=== PATIENT | male | born 1940 | race Caucasian/White ===

== ENCOUNTER 2018-11-06 10:32 | Emergency (ER) | payer MEDICARE ==
[~2018-11-06] VITALS: Ht 180.3 cm; Wt 110.2 kg
[2018-11-06 10:41] VITALS: BP 164/86
== END 2018-11-06 12:44 | disposition home or self-care (01) ==
LOC: ED 12:13
DX: G89.11 Acute pain due to trauma (principal); M25.551 Pain in right hip; M25.561 Pain in right knee; M25.462 Effusion, left knee; I10 Essential (primary) hypertension; E11.9 Type 2 diabetes mellitus without complications; Z87.891 Personal history of nicotine dependence; W01.0XXA Fall on same level from slipping, tripping and stumbling without subsequent striking against object, initial encounter; Y93.89 Activity, other specified; Y92.89 Other specified places as the place of occurrence of the external cause; Y99.8 Other external cause status
CPT/HCPCS: 99283